=== PATIENT | male | born 1995 | race Caucasian/White ===

== ENCOUNTER 2019-02-01 14:35 | Emergency (ER) | payer OTHER, MEDICAID ==
[~2019-02-01] VITALS: Ht 193 cm; Wt 64.0 kg
[2019-02-01 14:39] VITALS: BP 112/75
--- NOTE | 2019-02-01 15:00 | NUR ---
PT NOT IN ROOM AT THIS TIME.
--- NOTE | 2019-02-01 15:15 | NUR ---
PT NOT IN ROOM PER DARYA PAC.
--- NOTE | 2019-02-01 15:32 | NUR ---
PT NOT IN ROOM PER DARYA PAC. PT ASSUMED TO HAVE ELOPED.
== END 2019-02-01 15:34 | disposition left against medical advice (07) ==
LOC: ED 15:23
DX: R22.9 Localized swelling, mass and lump, unspecified (principal); R50.9 Fever, unspecified
CPT/HCPCS: 99281

== ENCOUNTER 2021-06-28 22:30 | Emergency (ER) | payer MEDICAID, OTHER ==
[~2021-06-28] VITALS: Ht 182.9 cm; Wt 75.9 kg
[2021-06-28 22:32] VITALS: BP 101/63
[2021-06-28 23:17] LABS: BASOPHILS % (AUTO) 1 % (0-1); EOSINOPHILS % (AUTO) 1 % (1-7); LYMPHOCYTES % (AUTO) 15 % (22-44); MEAN CORPUSCULAR HEMOGLOBIN 27.9 pg (27.5-34.5); MEAN CORPUSCULAR HGB CONC 34.2 g/dL (33.2-36.2); MEAN PLATELET VOLUME 9.1 fL (7.4-10.4); MONOCYTES % (AUTO) 9 % (2-9); NEUTROPHILS % (AUTO) 74 % (42-75); PLATELET COUNT 269 x10^3/uL (130-400); RED BLOOD COUNT 4.76 x10^6/uL (4.38-5.82); RED CELL DISTRIBUTION WIDTH 13.6 % (9.4-14.8)
[2021-06-28 23:24] LABS: ALANINE AMINOTRANSFERASE 20 U/L (12-78); ALBUMIN 3.9 g/dL (3.4-5.0); ANION GAP 4 mmol/L (5-15); CALCIUM 8.9 mg/dL (8.5-10.1); CHLORIDE 103 mmol/L (98-107); CREATININE 0.86 mg/dL (0.7-1.3)
[2021-06-28 23:26] LABS: ALKALINE PHOSPHATASE 58 U/L (45-117); BILIRUBIN,TOTAL 0.3 mg/dL (0.2-1.0); TOTAL PROTEIN 8.1 g/dL (6.4-8.2)
--- NOTE | 2021-06-29 00:49 | NUR ---
Patient signed out AMA with registration.
== END 2021-06-29 00:50 | disposition left against medical advice (07) ==
LOC: ED 06-29 00:40
DX: R10.9 Unspecified abdominal pain (principal); Z53.21 Procedure and treatment not carried out due to patient leaving prior to being seen by health care provider
CPT/HCPCS: 36415; 80053; 85025